=== PATIENT | male | born 1955 | race Caucasian/White ===

== ENCOUNTER → 2022-04-12 | Outpatient (CLI) | payer BC | END | disposition home or self-care (01) | LOC: SHCH 08:54 | PROVIDERS: ATTEND Internal Medicine Cardiovascular Disease | DX: I10 Essential (primary) hypertension (principal) | CPT/HCPCS: 93306 ==

== ENCOUNTER → 2022-04-26 | Outpatient (CLI) | payer BC ==
[~2022-04-26] MED LIST: REGADENOSON 0.4 MG/5 ML PF SYG IVP SCH
== END | disposition home or self-care (01) ==
LOC: SHCH 08:34
PROVIDERS: ATTEND Internal Medicine Cardiovascular Disease
DX: I25.10 Atherosclerotic heart disease of native coronary artery without angina pectoris (principal); I10 Essential (primary) hypertension
CPT/HCPCS: 78452; 96374; 93017; J2785; A9500 ×2

== ENCOUNTER 2023-01-02 04:51 | Emergency (ER) | payer BC, MEDICARE ==
[~2023-01-02] VITALS: Ht 182.9 cm; Wt 124.7 kg
[2023-01-02] MEDS ORDERED: IPRATROPIUM/ALBUTEROL SULFATE 3 ML SOLUTION IH ONE ×2 (05:30→05:36)
[2023-01-02 05:46] LABS: CREATININE 1.2 mg/dL (0.5-1.5)
[2023-01-02 05:50] LABS: ALBUMIN 3.8 g/dL (3.5-5.0); MAGNESIUM 1.9 mg/dL (1.80-2.40); TOTAL PROTEIN, SERUM 8.1 g/dL (6.0-8.3)
[2023-01-02] MEDS ORDERED: MAGNESIUM 2GM PREMIX 50ML 50 ML IV SCH (06:00)
[2023-01-02 06:05] LABS: B-TYPE NATRIURETIC PEPTIDE 8 pg/mL (0-100)
[2023-01-02 06:10] LABS: BASOPHILS % (AUTO) 0.5 % (0.0-5.0); EOSINOPHILS % (AUTO) 1.9 % (0.0-8.0); HEMATOCRIT 47.3 % (42-54); LYMPHOCYTES % (AUTO) 14.8 % (21.0-51.0); MEAN CORPUSCULAR HEMOGLOBIN 32.4 pg (27.0-33.0); MEAN CORPUSCULAR HGB CONC 33.8 g/dL (32.0-36.0); MEAN CORPUSCULAR VOLUME 95.7 fL (79-99); MONOCYTES % (AUTO) 7.5 % (3.0-13.0); PLATELET COUNT (AUTO) 294 K/uL (130-400); RED BLOOD CELL COUNT(AUTO) 4.94 MIL/uL (4.50-6.20); RED CELL DISTRIBUTION WIDTH 13.4 % (11.0-15.5); WHITE BLOOD COUNT (AUTO) 9.6 K/uL (4.8-10.8)
[2023-01-02] MEDS ORDERED: AZITHROMYCIN 250 MG TABLET PO ONE (06:11)
[2023-01-02] MEDS ORDERED: CEFTRIAXONE 1G VIAL ONE (06:11)
[2023-01-02] MEDS ORDERED: CEFTRIAXONE 1G VIAL IVPB SCH (06:30)
[2023-01-02] MEDS ORDERED: AZITHROMYCIN 250 MG TABLET PO SCH (06:30)
[2023-01-02] MEDS ORDERED: ALBU90AE2 IH (07:03)
[2023-01-02] MEDS ORDERED: AZIT500T2 PO (07:03)
[2023-01-02] MEDS ORDERED: PRED20TA3 PO (07:03)
[2023-01-02 07:23] VITALS: BP 156/74
== END 2023-01-02 09:02 | disposition home or self-care (01) ==
LOC: EDH 04:51
DX: J44.9 Chronic obstructive pulmonary disease, unspecified (principal); R07.89 Other chest pain; F17.200 Nicotine dependence, unspecified, uncomplicated; Z88.5 Allergy status to narcotic agent; Z20.822 Contact with and (suspected) exposure to COVID-19
CPT/HCPCS: 99285; 96365; 71045; 87635; 83735; 84484 ×2; 80053; 83880; 85025; 87804 ×2; 36415; 96368; 93005; 94640; C9803; J3475; J0696; 96375

== ENCOUNTER → 2024-01-14 | Outpatient (CLI) | payer MEDICARE ==
[~2024-01-14] MED LIST changes: +ALBU90AE3 IH; +AZIT500T2 PO; +PRED20TA3 PO; -REGADENOSON 0.4 MG/5 ML PF SYG IVP SCH
== END | disposition home or self-care (01) ==
LOC: SHCH 10:11
PROVIDERS: ATTEND Internal Medicine Cardiovascular Disease
DX: Z95.5 Presence of coronary angioplasty implant and graft (principal); I25.10 Atherosclerotic heart disease of native coronary artery without angina pectoris
CPT/HCPCS: 93880

== ENCOUNTER → 2024-01-17 | Outpatient (CLI) | payer MEDICARE ==
[2024-01-17] MEDS: REGADENOSON 0.4 MG/5 ML PF SYG IVP ONE (11:19)
== END | disposition home or self-care (01) ==
LOC: SHCH 08:23
PROVIDERS: ATTEND Internal Medicine Cardiovascular Disease
DX: I25.10 Atherosclerotic heart disease of native coronary artery without angina pectoris (principal)
CPT/HCPCS: 78452; 96374; 93017; J2785; A9500 ×2

== ENCOUNTER 2024-02-29 06:47 | Day surgery (SDC) | payer MEDICARE ==
[2024-02-28 11:09] LABS: APPEARANCE,URINE CLEAR (CLEAR); BILIRUBIN,URINE NEGATIVE (NEGATIVE); COLOR,URINE COLORLESS (YELLOW); GLUCOSE, URINE (UA) NEGATIVE (NEGATIVE); KETONES,URINE NEGATIVE (NEGATIVE); LEUKOCYTE ESTERASE ,URINE NEGATIVE Leu/uL (NEGATIVE); NITRATE,URINE NEGATIVE (NEGATIVE); OCCULT BLOOD,URINE NEGATIVE (NEGATIVE); PH,URINE 6.5 (5.0-8.0); PROTEIN,URINE NEGATIVE (NEGATIVE); UROBILINOGEN,URINE 0.2 mg/dL (0.2-1.0)
[2024-02-28 11:19] LABS: B-TYPE NATRIURETIC PEPTIDE 15 pg/mL (0-100)
[2024-02-28 11:19] LABS: ADD UA MICROSCOPIC NO
[2024-02-28 11:22] VITALS: BP 172/93; PULSE 53; RESP 18
[2024-02-28 11:25] LABS: CREATININE 1.1 mg/dL (0.5-1.3); POTASSIUM 4.8 mmol/L (3.5-5.1)
[2024-02-28 12:51] LABS: BASOPHILS # (AUTO) 0.07 K/uL (0.00-0.20); BASOPHILS % (AUTO) 0.9 % (0.0-5.0); EOSINOPHILS # (AUTO) 0.34 K/uL (0.00-0.70); EOSINOPHILS % (AUTO) 4.3 % (0.0-8.0); HEMATOCRIT 48.8 % (42-54); IMMATURE GRANULOCYTE ABSOLUTE 0.03 K/uL (0-1); LYMPHOCYTES # (AUTO) 2.4 K/uL (1.0-4.8); LYMPHOCYTES % (AUTO) 29.8 % (21.0-51.0); MEAN CORPUSCULAR HEMOGLOBIN 32.2 pg (27.0-33.0); MEAN CORPUSCULAR HGB CONC 33.6 g/dL (32.0-36.0); MEAN CORPUSCULAR VOLUME 95.7 fL (79-99); MONOCYTES # (AUTO) 0.9 K/uL (0.1-1.0); MONOCYTES % (AUTO) 11.3 % (3.0-13.0); NEUTROPHILS # (AUTO) 4.3 K/uL (1.8-7.7); NEUTROPHILS % (AUTO) 53.3 % (40.0-77.0); PLATELET COUNT (AUTO) 405 K/uL (130-400); RED CELL DISTRIBUTION WIDTH 14.4 % (11.0-15.5)
[2024-02-28 13:06] LABS: INR 0.99 (0.85-1.15); PROTHROMBIN TIME 10.7 SEC (9.6-11.6)
[2024-02-28 13:07] LABS: PARTIAL THROMBOPLASTIN TIME 24.9 SEC (26.3-35.5)
[2024-02-29] VITALS (11 sets, daily range): BP systolic 110–147; BP diastolic 58–93; PULSE 49–73; RESP 12–18
[~2024-02-29] VITALS: Ht 182.9 cm; Wt 129.5 kg
[~2024-02-29 06:47] MED LIST changes: +AEC81 PO; -ALBU90AE3 IH; -AZIT500T2 PO; +METO-408 PO; -PRED20TA3 PO; +ROSU40TA70 PO
[2024-02-29] MEDS: 0.9%NACL 1000ML 1,000 ML IV ONE (07:53)
[2024-02-29] MEDS ORDERED: IOHEXOL 350 MG/ML 100ML INFUS..BTL IV ONE (08:53)
[2024-02-29] MEDS ORDERED: NITROGLYCERIN 50MG VIAL ONE (08:53)
[2024-02-29] MEDS ORDERED: HEPARIN 10,000 UNIT/10ML (1,000 UNIT/ML) VIAL ONE (08:53)
[2024-02-29] MEDS ORDERED: NICARDIPINE 25MG INJ IV ONE (08:53)
[2024-02-29] MEDS ORDERED: LIDOCAINE HCL 400MG/20ML VIAL ONE (08:53)
[2024-02-29] MEDS ORDERED: MIDAZOLAM HCL 1 MG/ML 2ML VIAL ONE ×3 (09:05→09:29)
[2024-02-29] MEDS ORDERED: MEPERIDINE-PF 25 MG/ML SYG ONE ×3 (09:05→09:29)
[2024-02-29] MEDS ORDERED: 0.9%NACL 1000ML 1,000 ML IV SCH (10:00)
[2024-02-29] MEDS ORDERED: CLOPIDOGREL 300MG TAB ONE (10:10)
== END 2024-02-29 14:55 | disposition home or self-care (01) ==
LOC: DAH 06:47
PROVIDERS: ATTEND Internal Medicine Cardiovascular Disease
DX: I25.118 Atherosclerotic heart disease of native coronary artery with other forms of angina pectoris (principal); R06.09 Other forms of dyspnea; R53.83 Other fatigue; I10 Essential (primary) hypertension; I44.0 Atrioventricular block, first degree; R94.31 Abnormal electrocardiogram [ECG] [EKG]; E78.00 Pure hypercholesterolemia, unspecified; E78.5 Hyperlipidemia, unspecified; F17.200 Nicotine dependence, unspecified, uncomplicated; Z79.899 Other long term (current) drug therapy; Z88.5 Allergy status to narcotic agent
CPT/HCPCS: 80048; 83880; 85025; 85610; 85730; 81003; 36415 ×2; 71045; 93005 ×2; 93458; 85347; A4223 ×3; C1769 ×2; C1874; A4649; C1894; C1887; Q9965 ×2; J3490 ×3; J7030; J1644 ×2; J2250 ×3; J2175 ×3; Q9967; A4215; A4222; A4221; A4663; A4216; A4606; C9600; 96360; 96361; 99156; 99157